=== PATIENT | female | born 1985 | race Caucasian/White ===

== ENCOUNTER 2017-12-05 10:06 | Emergency (ER) | payer OTHER ==
[2017-12-05] MEDS: ONDANSETRON (ODT) 4 MG TAB ODT (11:53)
[2017-12-05] MEDS: HYDROCODONE/APAP (5/325) TAB PO (11:53)
== END 2017-12-05 12:50 | disposition home or self-care (01) ==
LOC: FTE 10:06
DX: G43.909 Migraine, unspecified, not intractable, without status migrainosus (principal); J32.9 Chronic sinusitis, unspecified; H11.31 Conjunctival hemorrhage, right eye
CPT/HCPCS: 99284; Z7502